=== PATIENT | male | born 1960 | race Caucasian/White ===

== ENCOUNTER → 2017-12-27 17:59 | Outpatient (REF) | payer OTHER, SELFPAY | LOC: LAB 17:59 | PROVIDERS: Family Provider Family Medicine; PCP Family Medicine; Visit Provider Dermatology | DX: R21 Rash and other nonspecific skin eruption (principal); L08.9 Local infection of the skin and subcutaneous tissue, unspecified; D23.72 Other benign neoplasm of skin of left lower limb, including hip | CPT/HCPCS: 87070; 87075; 87205 ==

== ENCOUNTER → 2018-10-26 07:36 | Outpatient (CLI) | payer OTHER, SELFPAY ==
[2018-10-26 08:44] LABS: Add Manual Diff / Slide Review NO; Basophils Absolute Auto 100 /uL (0-100); Eosinophils Absolute Auto 300 /uL (0-450); Eosinophils Percent Auto 5.7 % (2-4); Hematocrit 43.6 % (41-53); Hemoglobin 15.1 g/dL (13.5-17.5); Lymphocytes Absolute Auto 1700 /uL (1100-4500); Lymphocytes Percent Auto 27.4 % (25-40); Mean Corpuscular HGB Conc 34.6 % (30-36); Mean Corpuscular Hemoglobin 33.7 PG (26-34); Mean Corpuscular Volume 97.5 fL (80-100); Monocytes Absolute Auto 600 /uL (0-900); Monocytes Percent Auto 9.4 % (3-14); Neutrophils Absolute Auto 3400 /uL (1500-7000); Neutrophils Percent Auto 56.5 % (50-75); Platelet Count 196 X10^3/uL (150-400); Red Blood Cell Count 4.47 X10^6/uL (4.5-5.9); Red Cell Distribution Width 13.5 % (11.6-14.8); White Blood Cell Count 6.1 X10^3/uL (4.5-11.0)
[2018-10-26 09:21] LABS: Alanine Aminotransferase 39 IU/L (21-72); Albumin 4.2 g/dL (3.5-5.0); Albumin Globulin Ratio 1.4 (1.0-2.8); Alkaline Phosphatase 62 U/L (38-126); Aspartate Aminotransferase 34 IU/L (17-59); BUN Creatinine Ratio 17.5 (6-22); Bilirubin Total 0.9 mg/dL (0.2-1.3); Blood Urea Nitrogen 21 mg/dL (9-20); Calcium 9.5 mg/dL (8.4-10.2); Carbon Dioxide 27 mmol/L (22-32); Chloride 102 mmol/L (98-107); Cholesterol 191 mg/dL (140-199); Estimated Glomerular Filt Rate > 60.0 mL/min (>60); Globulin 3.1 g/dL (1.7-4.1); Glucose 106 mg/dL (70-100); HDL Cholesterol 42 mg/dL (40-60); HEMOLYSIS < 15 (0-50); LDL Cholesterol Calculated 101 mg/dL (<100); Potassium 4.2 mmol/L (3.4-5.1); Sodium 139 mmol/L (137-145); Total Protein 7.3 g/dL (6.3-8.2); Triglycerides 240 mg/dL (35-150)
[2018-10-26 09:48] LABS: Prostate Specific Antigen Scrn 0.734 ng/mL (0.1-4.0)
[2018-10-26 09:49] LABS: TSH w/ Reflex to FT4 1.48 uIU/mL (0.47-4.68)
== END ==
PROVIDERS: PCP Family Medicine; Visit Provider Family Medicine
DX: I10 Essential (primary) hypertension (principal); Z12.5 Encounter for screening for malignant neoplasm of prostate; Z13.6 Encounter for screening for cardiovascular disorders
CPT/HCPCS: 36415; 80053; 80061; 84443; 85025; G0103

== ENCOUNTER 2019-03-20 13:16 | Day surgery (SDC) | payer OTHER, SELFPAY ==
--- NOTE | 2019-03-20 | PATH_ITS ---
[facility] Accession Number: [id number] . 01 Material submitted: . PART A: colon - POLYP AT 50CM PART B: colon - POLYP AT 20CM . 02 Diagnosis: A. Colon At 50 CM, Polyp: Tubular adenoma. . B. Colon At 20 CM, Polyp: Tubular adenoma. [facility] 03/22/2019 1330 Local . 02 Electronically signed: . Yfn Peoples MD, PhD, Pathologist NPI- [id number] . 01 Gross description: . Part A: POLYP AT 50CM: Received in formalin is 1 fragment(s) of [place], soft tissue measuring 0.3 x 0.2 x 0.2 cm submitted entirely in 1 cassette(s) Part B: POLYP AT 20CM: Received in formalin is 1 fragment(s) of [place], soft tissue measuring 0.7 x 0.4 x 0.4 cm submitted entirely in 1 cassette(s) /[facility] 03/21/2019 1431 Local . 02 Pathologist provided ICD-10: D12.6 . 02 CPT . 252442, 775208 Performed at: 01 [facility] [address] [facility], [place], [place] [id number] MD Eduard Eaton MD Phone: [phone] Performed at: 02 [facility] [place] [address] [place], [place] [id number] MD My Sanchez MD Phone: [phone]
[2019-03-20 14:13] VITALS: BMI 29.9
[2019-03-20 14:20] VITALS: BP 134/93; PULSE 60; RESP 12; TEMP 36.4; O2SAT 97
[2019-03-20] MEDS: SODIUM CHLORIDE 0.9% 1,000 ML 200 ML IV (14:26)
--- NOTE | 2019-03-20 14:42 | PM.HP.1 ---
History of Present Illness History of Present Illness Date Patient Seen: 03/20/19 Time Patient Seen: 14:42 Chief complaint: [id number] Narrative: 58-year-old white male here for a screening colonoscopy. He is totally asymptomatic. Patient History Medical History Carpal tunnel syndrome (Chronic) Chicken pox (Resolved) Essential hypertension (Acute) Headache (Chronic) Hyperlipidemia (Acute) Mumps (Resolved) Shoulder pain (Chronic) Surgical History Anesthesia (Resolved) History of inguinal hernia repair (Resolved) Family & Social History Social History: household members spouse Tobacco & Substance use: Smoking Status Former smoker alcohol intake current alcohol intake frequency a few times a month Substance Use Type does not use Meds Home Medications and Allergies Home Medications Medication Instructions Recorded Confirmed Type aspirin 81 mg PO QDAY #0 01/26/12 03/20/19 History tiehjtmashov-rjblwrti-xcibjk 1 tab PO DAILY #0 01/26/12 03/20/19 History [Multivitamin 50 Plus] ascorbic acid (vitamin C) 1,000 mg PO QDAY #0 03/15/12 03/20/19 History lovastatin 40 mg tablet 40 mg PO DAILY #90 tab 11/01/18 03/20/19 Rx metoprolol succinate 100 mg 100 mg PO QDAY #90 tab 11/01/18 03/20/19 Rx tablet,extended release 24 hr omega 3-imi-ovn-fish oil [Fish Oil] 1 cap PO DAILY 03/20/19 03/20/19 History Allergies Allergy/AdvReac Type Severity Reaction Status Date / Time No Known Drug Allergies Allergy Verified 03/20/19 14:10 Review of Systems Review of Systems ROS: Yes All systems reviewed with the patient and are negative except as otherwise documented Exam Vital Signs (past 8 hours): - 03/20/19 14:20 Temperature 97.6 F Pulse Rate 60 Respiratory Rate 12 Blood Pressure 134/93 H Pulse Oximetry 97 Oxygen Delivery Method Room Air Narrative Exam Narrative: Patient resting comfortably in bed asymptomatic. Lungs are clear with no rales or wheezes Heart regular rhythm no murmur Abdomen soft nontender no organomegaly Rectal at time of colonoscopy Assessment & Plan Assessment & Plan narrative: Asymptomatic patient here for screening colonoscopy. He has no unanswered questions.
--- NOTE | 2019-03-20 16:00 | PM.OP.ENDO ---
Operative Date/Time/Diagnoses Date of procedure: 03/20/19 Time of procedure: 16:00 Pre-op diagnosis: Screening colonoscopy Post-op diagnosis: other (Iglesias diverticulosis with 2 polyps 1 at 20 cm the other at 50 cm. These were both removed and submitted) Procedure & Clinicians Study performed: Total colonoscopy to the cecum with polypectomy at 50 and 20 cm Same procedure as scheduled: Yes Surgeon: Carmelo Giordano Procedure Notes SCOAP/Timeout: This was done Procedure in detail: The patient was properly identified during surgical pause. He was given a total of 5 mg of Versed and 250 micro g of fentanyl and remained very comfortable throughout the procedure. The flexible fiberoptic colonoscope was inserted transanally to the cecum. The patient has iglesias diverticulosis. Patient had 2 polyps 1 at 20 cm which was slightly over 1 cm in pedunculated. This was removed with the hot snare. Polyp was submitted. At 50 cm the patient had a 5 mm polyp which was removed with the cold biopsy forceps and also submitted. Patient had no other polyps or tumors. Procedure was well tolerated. Scope withdrawal time: 14 Sedation minutes: 30 Findings: polyp Specimen(s): other (Polyp at 20 cm and a polyp at 50 cm were submitted) Complications: none Post-procedure Recommendations: Colonscopy in 5 years Disposition: PACU
[2019-03-20] MEDS: MIDAZOLAM 5 MG/5 ML VIAL IV (16:01)
[2019-03-20] MEDS: fentaNYL 250 MCG/5 ML INJ IV (16:01)
[2019-03-20 16:02] VITALS: BP 160/99; PULSE 76; RESP 17; TEMP 36.9; O2SAT 97
[2019-03-20 16:30] VITALS: BP 161/91; PULSE 75; RESP 16; TEMP 36.4; O2SAT 97
== END 2019-03-20 16:30 | disposition home or self-care (01) ==
PROVIDERS: PCP Family Medicine; Referring Provider Surgery; Visit Provider Surgery
PROC: 0DJD8ZZ Inspection of Lower Intestinal Tract, Via Natural or Artificial Opening Endoscopic (ICD-10-PCS; CPT 45378; principal; 2019-03-20 15:15)
DX: Z12.11 Encounter for screening for malignant neoplasm of colon (principal); K57.30 Diverticulosis of large intestine without perforation or abscess without bleeding; D12.6 Benign neoplasm of colon, unspecified
CPT/HCPCS: 45385; 99152; 99153; J2250; J3010

== ENCOUNTER → 2020-04-19 16:47 | Outpatient (CLI) | payer OTHER, SELFPAY ==
[2020-04-19] MEDS: COVID-19 VACC, Ad26(JANSSEN)/PF 0.5 ML IM (16:53)
== END ==
PROVIDERS: PCP Family Medicine; Visit Provider Internal Medicine
DX: Z23 Encounter for immunization (principal)
CPT/HCPCS: 0031A; 91303

== ENCOUNTER → 2021-07-08 06:54 | Outpatient (CLI) | payer OTHER, SELFPAY ==
[2021-07-08 07:49] LABS: Add Manual Diff / Slide Review NO; Basophils Absolute Auto 100 /uL (0-100); Basophils Percent Auto 0.9 % (0-2); Eosinophils Absolute Auto 300 /uL (0-450); Eosinophils Percent Auto 4.6 % (2-4); Hematocrit 43.3 % (41-53); Hemoglobin 15.1 g/dL (13.5-17.5); Lymphocytes Absolute Auto 1900 /uL (1100-4500); Lymphocytes Percent Auto 32.8 % (25-40); Mean Corpuscular HGB Conc 34.9 % (30-36); Mean Corpuscular Hemoglobin 33.5 PG (26-34); Mean Corpuscular Volume 96.1 fL (80-100); Monocytes Absolute Auto 500 /uL (0-900); Monocytes Percent Auto 9.1 % (3-14); Neutrophils Absolute Auto 3100 /uL (1500-7000); Neutrophils Percent Auto 52.6 % (50-75); Platelet Count 185 X10^3/uL (150-400); Red Blood Cell Count 4.51 X10^6/uL (4.5-5.9); Red Cell Distribution Width 13.4 % (11.6-14.8); White Blood Cell Count 5.9 X10^3/uL (4.5-11.0)
[2021-07-08 08:01] LABS: BUN Creatinine Ratio 15.7 (6-22); Blood Urea Nitrogen 18 mg/dL (9-20); Calcium 9.1 mg/dL (8.4-10.2); Carbon Dioxide 28 mmol/L (22-32); Chloride 103 mmol/L (98-107); Cholesterol 170 mg/dL (140-199); Estimated Glomerular Filt Rate > 60 mL/min (>60); Glucose 124 mg/dL (80-110); HDL Cholesterol 46 mg/dL (40-60); HEMOLYSIS < 15 (0-50); LDL Cholesterol Calculated 93 mg/dL (<100); Potassium 3.7 mmol/L (3.4-5.1); Sodium 138 mmol/L (137-145); Triglycerides 157 mg/dL (35-150)
[2021-07-08 08:32] LABS: Prostate Specific Antigen Scrn 0.649 ng/mL (0.1-4.0)
== END ==
PROVIDERS: PCP Family Medicine; Referring Provider Family Medicine; Visit Provider Family Medicine
DX: E78.5 Hyperlipidemia, unspecified (principal); I10 Essential (primary) hypertension; Z12.5 Encounter for screening for malignant neoplasm of prostate
CPT/HCPCS: 36415; 80048; 80061; 85025; G0103

== ENCOUNTER → 2021-07-10 09:33 | Outpatient (CLI) | payer OTHER, SELFPAY ==
--- NOTE | 2021-07-10 09:34 | DI.RAD.S_ITS ---
PROCEDURE: XR KNEE RT 3V INDICATIONS: rt knee pain TECHNIQUE: 3 views of the knee were acquired. COMPARISON: None. FINDINGS: Bones: No fractures or dislocations. No suspicious bony lesions. Moderate tricompartmental periarticular osteophyte formation. Soft tissues: No joint effusion. No suspicious soft tissue calcifications. IMPRESSION: Osteoarthritis. No acute fracture. No osseous lesion. If symptoms and/or clinical suspicion for pathology persist, further assessment with repeat, or advanced imaging (e.g., CT, MRI, or bone scan) may be helpful for further assessment. Dictated by: Ibeth Pelaez M.D. on 07/10/2021 at 11:02 Approved by: Ibeth Pelaez M.D. on 07/10/2021 at 11:02
== END ==
PROVIDERS: PCP Family Medicine; Referring Provider Family Medicine; Visit Provider Family Medicine
DX: M25.561 Pain in right knee (principal); M17.11 Unilateral primary osteoarthritis, right knee
CPT/HCPCS: 73562

== ENCOUNTER → 2022-04-06 17:09 | Outpatient (CLI) | payer OTHER, SELFPAY ==
--- NOTE | 2022-04-06 17:12 | DI.RAD.S_ITS ---
PROCEDURE: XR CHEST 2V INDICATIONS: Former smoker >3ppd x 20 years; chronic cough TECHNIQUE: 2 views of the chest were acquired. COMPARISON: None. FINDINGS: Surgical changes and devices: None. Lungs and pleura: Lungs are clear. No pleural effusions or pneumothorax. Mediastinum: Mediastinal contours are normal. Heart size is normal. Bones and chest wall: No suspicious bony abnormalities. Age-appropriate bony degenerative changes are seen. Soft tissues appear unremarkable. IMPRESSION: Plain film study within normal limits for age. If there is strong clinical concern for an intrathoracic neoplasm in this patient with a given history of smoking, please consider a dedicated chest CT with contrast for further evaluation. Dictated by: Omega Franks M.D. on 04/06/2022 at 18:32 Approved by: Omega Franks M.D. on 04/06/2022 at 18:32
--- NOTE | 2022-04-06 17:12 | DI.US.S_ITS ---
PROCEDURE: US SOFT TISSUE HEAD AND NECK INDICATIONS: LEFT NECK LYMPH NODE TECHNIQUE: Real-time scanning was performed of the neck region of interest, with image documentation. COMPARISON: None. FINDINGS: Grayscale color Doppler images of the left submandibular region demonstrates a normal appearing lymph node measuring approximately 1.4 x 0.3 x 0.8 cm. This correlates with palpable area of concern. IMPRESSION: Palpable area of concern in the left submandibular region correlates with a normal lymph node. Dictated by: Baldev Haines M.D. on 04/07/2022 at 10:31 Approved by: Baldev Haines M.D. on 04/07/2022 at 10:33
== END ==
PROVIDERS: PCP Family Medicine; Referring Provider Physician Assistant; Visit Provider Physician Assistant
DX: R05.3 Chronic cough (principal); R59.0 Localized enlarged lymph nodes; Z87.891 Personal history of nicotine dependence
CPT/HCPCS: 71046; 76536

== ENCOUNTER → 2022-07-10 06:46 | Outpatient (CLI) | payer OTHER, SELFPAY ==
[2022-07-10 08:10] LABS: Add Manual Diff / Slide Review NO; Basophils Absolute Auto 100 /uL (0-100); Eosinophils Absolute Auto 300 /uL (0-450); Eosinophils Percent Auto 4.8 % (2-4); Hematocrit 43.1 % (41-53); Hemoglobin 14.8 g/dL (13.5-17.5); Lymphocytes Absolute Auto 2400 /uL (1100-4500); Lymphocytes Percent Auto 44.4 % (25-40); Mean Corpuscular HGB Conc 34.4 % (30-36); Mean Corpuscular Hemoglobin 33.5 PG (26-34); Mean Corpuscular Volume 97.2 fL (80-100); Monocytes Absolute Auto 600 /uL (0-900); Monocytes Percent Auto 10.5 % (3-14); Neutrophils Absolute Auto 2100 /uL (1500-7000); Neutrophils Percent Auto 39.3 % (50-75); Platelet Count 192 X10^3/uL (150-400); Red Blood Cell Count 4.43 X10^6/uL (4.5-5.9); Red Cell Distribution Width 13.8 % (11.6-14.8); White Blood Cell Count 5.4 X10^3/uL (4.5-11.0)
[2022-07-10 08:24] LABS: Alanine Aminotransferase 37 IU/L (<50); Albumin 4.2 g/dL (3.5-5.0); Albumin Globulin Ratio 1.4 (1.0-2.8); Alkaline Phosphatase 64 U/L (38-126); Aspartate Aminotransferase 33 IU/L (17-59); BUN Creatinine Ratio 13.7 (6-22); Blood Urea Nitrogen 17 mg/dL (9-20); Calcium 9.6 mg/dL (8.4-10.2); Carbon Dioxide 34 mmol/L (22-32); Chloride 97 mmol/L (98-107); Cholesterol 158 mg/dL (140-199); Estimated Glomerular Filt Rate > 60 mL/min (>60); Globulin 2.9 g/dL (1.7-4.1); Glucose 112 mg/dL (80-110); HDL Cholesterol 51 mg/dL (40-60); HEMOLYSIS < 15 (0-50); LDL Cholesterol Calculated 79 mg/dL (<100); Potassium 4.6 mmol/L (3.4-5.1); Sodium 137 mmol/L (137-145); Total Protein 7.1 g/dL (6.3-8.2); Triglycerides 140 mg/dL (35-150)
[2022-07-10 08:53] LABS: TSH w/ Reflex to FT4 0.97 uIU/mL (0.47-4.68)
== END ==
PROVIDERS: PCP Family Medicine; Referring Provider Family Medicine; Visit Provider Family Medicine
DX: Z00.00 Encounter for general adult medical examination without abnormal findings (principal); E78.00 Pure hypercholesterolemia, unspecified; I10 Essential (primary) hypertension
CPT/HCPCS: 36415; 80053; 80061; 84443; 85025

== ENCOUNTER → 2023-07-28 07:07 | Outpatient (CLI) | payer OTHER, SELFPAY ==
[2023-07-28 08:19] LABS: Add Manual Diff / Slide Review NO; Basophils Absolute Auto 0 /uL (0-100); Basophils Percent Auto 0.7 % (0-2); Eosinophils Absolute Auto 200 /uL (0-450); Eosinophils Percent Auto 3.5 % (2-4); Hematocrit 43.2 % (41-53); Hemoglobin 14.3 g/dL (13.5-17.5); Lymphocytes Absolute Auto 2400 /uL (1100-4500); Lymphocytes Percent Auto 41.5 % (25-40); Mean Corpuscular HGB Conc 33.2 % (30-36); Mean Corpuscular Hemoglobin 32.4 PG (26-34); Mean Corpuscular Volume 97.6 fL (80-100); Monocytes Absolute Auto 500 /uL (0-900); Monocytes Percent Auto 8.9 % (3-14); Neutrophils Absolute Auto 2600 /uL (1500-7000); Neutrophils Percent Auto 45.4 % (50-75); Platelet Count 235 X10^3/uL (150-400); Red Blood Cell Count 4.43 X10^6/uL (4.5-5.9); Red Cell Distribution Width 13.1 % (11.6-14.8); White Blood Cell Count 5.8 X10^3/uL (4.5-11.0)
[2023-07-28 08:38] LABS: Alanine Aminotransferase 45 IU/L (<50); Albumin 4.2 g/dL (3.5-5.0); Albumin Globulin Ratio 1.5 (1.0-2.8); Alkaline Phosphatase 82 U/L (38-126); Aspartate Aminotransferase 39 IU/L (17-59); BUN Creatinine Ratio 13.1 (6-22); Blood Urea Nitrogen 14 mg/dL (9-20); Calcium 9.2 mg/dL (8.4-10.2); Carbon Dioxide 26 mmol/L (22-32); Chloride 106 mmol/L (98-107); Cholesterol 153 mg/dL (140-199); Estimated Glomerular Filt Rate > 60 mL/min (>60); Globulin 2.8 g/dL (1.7-4.1); Glucose 115 mg/dL (80-110); HDL Cholesterol 40 mg/dL (40-60); HEMOLYSIS < 15 (0-50); LDL Cholesterol Calculated 85 mg/dL (<100); Potassium 4.6 mmol/L (3.4-5.1); Sodium 137 mmol/L (137-145); Triglycerides 142 mg/dL (35-150)
[2023-07-28 09:07] LABS: Prostate Specific Antigen Scrn 0.923 ng/mL (0.1-4.0)
== END ==
PROVIDERS: PCP Family Medicine; Referring Provider Family Medicine; Visit Provider Family Medicine
DX: Z00.00 Encounter for general adult medical examination without abnormal findings (principal); Z12.5 Encounter for screening for malignant neoplasm of prostate; K21.9 Gastro-esophageal reflux disease without esophagitis; I10 Essential (primary) hypertension; E78.00 Pure hypercholesterolemia, unspecified
CPT/HCPCS: 36415; 80053; 80061; 85025; G0103

== ENCOUNTER 2024-10-12 08:49 | Day surgery (SDC) | payer OTHER, SELFPAY ==
--- NOTE | 2024-10-12 | PATH_ITS ---
[facility] Accession Number: [id number] No. of containers..02 Tissue . 01 Material submitted: . PART A: colon - DESCENDING POLYP PART B: colon - SIGMOID POLYP . 01 Diagnosis: A: DESENDING COLON, POLYPECTOMY: Tubular adenoma. - B: SIGMOID COLON, POLYPECTOMY: Tubular adenoma. [facility] 10/23/2024 1405 Local . 01 Electronically signed: . Martinez Santos MD, Pathologist NPI- [id number] . 01 Gross description: . A. Received in formalin with two identifiers and descending polyp, is a single soft [place] tissue fragment measuring 0.5 cm in greatest dimension. Entirely submitted in cassette A1. B. Received in formalin with two identifiers and sigmoid polyp, is a single soft [place] tissue fragment measuring 1.7 cm in greatest dimension. Entirely submitted in cassette B1. (AER:[id number]) /[facility] 10/21/2024 1944 Local . 01 Pathologist provided ICD-10: Z12.11 . 01 CPT . 258974, 579383 Specimen Comment: A courtesy copy of this report has been sent to [phone] Performed at: [address] [facility] [address], [place], [place] [id number] MD Eduard Eaton MD Phone: [phone]
[2024-10-12 09:07] VITALS: BP 160/86; PULSE 55; RESP 18; TEMP 36.4; O2SAT 95
[2024-10-12] MEDS: LACTATED RINGERS 1,000 ML 42 ML IV (09:12)
--- NOTE | 2024-10-12 09:30 | PM.HP.IH.1 ---
History of Present Illness History of Present Illness Date Patient Seen: 10/12/24 Time Patient Seen: 09:30 Chief complaint: SDC Narrative: Billy is a 64-year-old man here for a colonoscopy. He had last had one in [address] Giordano and a few small tubular adenomas were removed. No family history of colon cancer. [facility] Medical History (Updated 10/12/24 @ 09:31 by Brice Frias MD) Hyperlipidemia Essential hypertension Shoulder pain Carpal tunnel syndrome Mumps Chicken pox Headache Surgical History Anesthesia History of inguinal hernia repair Social History marital status: household members: spouse Smoking Status: Former smoker alcohol intake: current substance use type: does not use Meds Home Medications and Allergies Home Medications ?Medication ?Instructions ?Recorded ?Confirmed ?Type aspirin 81 mg chewable tablet 81 mg PO QDAY ##0 01/26/12 10/12/24 History mfyzflcojbrz-qctsmemi-zorddu 1 tab PO DAILY ##0 01/26/12 07/27/24 History tablet (Multivitamin 50 Plus tablet) ascorbic acid (vitamin C) 500 mg 1,000 mg PO QDAY ##0 03/15/12 10/12/24 History tablet omega 1-ofk-vkk-fish oil 1,000 mg 1 cap PO DAILY 03/20/19 07/27/24 History (120 mg-180 mg) capsule (Fish Oil) atorvastatin 20 mg tablet 20 mg PO DAILY #90 tabs 05/23/24 10/12/24 Rx lisinopril 20 mg tablet 20 mg PO DAILY #90 tabs 05/23/24 10/12/24 Rx metoprolol succinate 100 mg 100 mg PO DAILY #90 tabs 07/27/24 10/12/24 Rx tablet,extended release 24 hr Allergies Allergy/AdvReac Type Severity Reaction Status Date / Time No Known Drug Allergies Allergy Verified 10/12/24 09:05 Exam Vital Signs (past 8 hours): - 10/12/24 09:07 Temperature 97.6 F Pulse Rate 55 L Respiratory Rate 18 Blood Pressure 160/86 H Pulse Oximetry 95 Oxygen Delivery Method Room Air Oxygen Delivery Method Room Air Const General: No acute distress Assessment & Plan Assessment and plan (1) History of colon polyps: Status: Acute Plan Colonoscopy for history of polyps Time-Based Coding :: [TOTAL MINUTES] spent with patient and on the chart (including review of chart, obtaining history, exam, reviewing outside data, placing orders, documenting exam and treatment plan, and counseling patient) on [DATE]. PROFEE Manganese Wheeler Document charge(s): No
[2024-10-12 10:01] VITALS: BP 116/72; PULSE 75; RESP 16; TEMP 36.3; O2SAT 96
--- NOTE | 2024-10-12 10:05 | PM.OP.COLON ---
Operative Date/Time/Diagnoses Date of procedure: 10/12/24 Time of procedure: 10:05 Pre-op diagnosis: History of polyps Post-op diagnosis: same Procedure & Clinicians Study performed: Colonoscopy Same procedure(s) as scheduled: Yes Surgeon: Brice Frias Anesthesia Type: MAC +/- Procedure Notes Procedure in detail: Surgeon: Brice Frias MD Anesthesia: Bettina Sommers CRNA Procedure: The patient was brought to the endoscopy suite, placed in left lateral decubitus position. The patient was connected to monitoring devices. A time-out was performed. Sedation was administered. Once the patient was adequately sedated, a digital rectal exam was performed and was normal. The scope was then inserted and advanced to the cecum where the appendiceal orifice was identified and photographed. The scope was then slowly withdrawn over greater than 6 minutes. The mucosa was thoroughly inspected. There was a 5 mm polyp in the descending colon removed with a cold snare. There was a 6 mm polyp in the sigmoid colon removed with a cold snare. The scope was retroflexed in the rectum. No other abnormalities were found. The scope was straightened and removed. The patient was awakened and brought to recovery. Scope withdrawal time: 8 minutes Sedation time: 13 minutes EBL: 3 mL Findings: 5 mm polyp in the descending colon and 6 mm polyp in the sigmoid colon Post-procedure Disposition: PACU
[2024-10-12 10:07] VITALS: BP 107/60; PULSE 86; RESP 23; O2SAT 96
[2024-10-12 10:10] VITALS: BP 127/82; PULSE 73; RESP 24; O2SAT 95
== END 2024-10-12 10:30 | disposition home or self-care (01) ==
PROVIDERS: PCP Family Medicine; Referring Provider Surgery; Visit Provider Surgery
PROC: 0DJD8ZZ Inspection of Lower Intestinal Tract, Via Natural or Artificial Opening Endoscopic (ICD-10-PCS; CPT 45378; principal; 2024-10-12 10:00)
DX: Z12.11 Encounter for screening for malignant neoplasm of colon (principal); Z86.0101 Personal history of adenomatous and serrated colon polyps; Z87.891 Personal history of nicotine dependence; D12.4 Benign neoplasm of descending colon; D12.5 Benign neoplasm of sigmoid colon
CPT/HCPCS: 45385; J2405; J2704